=== PATIENT | female | born 1945 | race Caucasian/White ===

== ENCOUNTER 2019-04-01 02:05 | Outpatient (CLI) | payer MEDICARE, SELFPAY ==
[2019-04-01 13:21] LABS: ALT 37 U/L (12-78); AST 28 U/L (15-37); Albumin 4.3 g/dL (3.4-5.0); Alkaline Phosphatase 72 U/L (46-116); Anion Gap 9.9 mmol/L (3-11); BUN 17 mg/dL (7-18); Bilirubin, Total 0.7 mg/dL (0.2-1.0); CO2 30.1 mmol/L (21.0-32.0); Calcium 9.7 mg/dL (8.5-10.1); Calculated LDL 129; Chloride 99 mmol/L (98-107); Cholesterol 209 mg/dL (50-200); Glucose 88 mg/dL (70-100); HDL Cholesterol 57 mg/dL (40-60); Potassium 3.8 mmol/L (3.5-5.1); Sodium 139 mmol/L (136-145); TSH (W/Ref FT4) 2.08 uIU/mL (0.358-3.74); Total Protein 7.7 g/dL (6.4-8.2); Triglyceride 116 mg/dL (30-150)
== END 2019-04-01 02:25 ==
DX: E78.5 Hyperlipidemia, unspecified (principal); E03.9 Hypothyroidism, unspecified
CPT/HCPCS: 36415; 80053; 80061; 83721; 84443

== ENCOUNTER 2019-04-14 00:29 | Outpatient (CLI) | payer MEDICARE, SELFPAY ==
--- NOTE | 2019-04-14 08:30 | DI.MAMMO_ITS ---
SYMPTOMS/DIAGNOSIS: SCREENING, Z12.31 MAMMOGRAMS: Mammograms were interpreted according to the usual protocol including computer analysis with CAD system, tomosynthesis and C view imaging. The breasts are composed of fatty density tissue. There is no dominant mass. There are no suspicious calcifications and there has been no significant interval change when compared with prior images. SUMMARY: No evidence of malignancy, category 1. Yearly screening mammography is recommended. Breast density category A. MQSA ASSESSMENT OF FINDINGS: Negative. Category 1. Patient will receive a letter notifying them of these results. BI-RAD category A. The breasts are almost entirely fatty.
== END 2019-04-14 00:49 ==
DX: Z12.31 Encounter for screening mammogram for malignant neoplasm of breast (principal)
CPT/HCPCS: 77063; 77067

== ENCOUNTER 2019-05-05 15:52 | Outpatient (CLI) | payer MEDICARE, SELFPAY ==
--- NOTE | 2019-05-05 15:39 | DI.RAD_ITS ---
SYMPTOM/DIAGNOSIS: RT KNEE PAIN RIGHT KNEE: Multiple views. Comparison is made with 06/09/17. Moderately severe joint space narrowing is seen at the patellofemoral joint. There are osteophytes and subchondral cysts across the patellofemoral joint. The femoral tibial joint appears well maintained. The bones are intact and normally mineralized. Vascular calcifications are seen in the soft tissues. IMPRESSION: Moderately severe degenerative changes of the patellofemoral joint.
== END 2019-05-05 16:12 ==
PROVIDERS: Visit Provider Student in an Organized Health Care Education/Training Program
DX: M25.561 Pain in right knee (principal); M17.11 Unilateral primary osteoarthritis, right knee; M25.461 Effusion, right knee
CPT/HCPCS: 99213; 73564

== ENCOUNTER → 2019-05-24 13:49 | Outpatient (BNVA) | payer MEDICARE, SELFPAY | PROVIDERS: Visit Provider Physical Therapy Assistant | DX: Z12.11 Encounter for screening for malignant neoplasm of colon (principal); Z86.010 Personal history of colon polyps; I10 Essential (primary) hypertension ==

== ENCOUNTER 2019-05-28 10:10 | Outpatient (CLI) | payer MEDICARE, SELFPAY ==
--- NOTE | 2019-05-28 09:28 | W.PREOPHP ---
Assessment and Plan (1) Degenerative joint disease of right knee: Current visit: No Status: Chronic Plan: Educated patient on surgery covering surgical technique via models, recovery process, benefits and risks including but not limited to risk of infection, blood clot, numbness/tingling, damage to soft tissue/blood vessels/nerves in detail. After discussion patient gives verbal understanding of risks and elects to proceed with scheduling surgery. Patient had opportunity to have questions answered to their satisfaction. They will contact office if issues arise. Patient will continue to be scheduled for right total knee replacement with Dr. George. Qualifiers: Osteoarthritis type: primary Qualified Code(s): M17.11 - Unilateral primary osteoarthritis, right knee History of Present Illness For preoperative visit for right total knee Narrative: Ms. Barone is a 73-year-old female who presents to clinic for scheduled preoperative visit regarding right total knee replacement with Dr. George. Patient has been seen in orthopedic clinic numerous times regarding right knee pain. She identifies pain as being located on the anterior and lateral border of her patella with an occasional discomfort over her medial joint line as well as medial border of her patella. Describes pain as a constant ache that is severely aggravated with prolonged walking as well as stairs. Due to the recurrence of swelling patient significantly limits her activity and frequently elevates and ices that leg which provides some symptomatic improvement. She will also take rare doses of Aleve which provides significant pain relief. Patient reports she frequently has to brace herself with the use of the railing when descending stairs due to severe right knee discomfort as well as feelings of instability. States the knee frequently feels like it wants to lock up with prolonged walking. Patient denies any recent injuries or falls. Patient denies any symptoms of muscle weakness, numbness or tingling. Review of patient's history shows she had received a steroid injection in 06/09/2017 which provided some relief for approximately 3 months, unfortunately following the injection she reported aggravation of discomfort and swelling. Due to her continued symptoms patient had an MRI completed which as per Dr. George's read the MRI revealed signs of patellofemoral arthritis and recent x-rays revealed worsening arthritis especially the medial compartment and patellofemoral joint. Due to patient's continued symptoms causing restriction of activity and arthritis Dr. George offered surgical intervention and she was eager to proceed with total knee replacement. Pertinent Surgical Information Due to patient's complaints of chest pain and shortness of breath in 2013 she underwent a stress test. Review of Dr. Caldera' note from 08/12/2014 states conclusion of study was a negative treadmill study at very low functional capacity. Patient has had surgery since the stress test was completed and denies any issues. Patient denies any continued cardiac complaints. Review of systems today was negative for any concerning symptoms. Denies past medical history of: stroke, cardiac issues, angina, asthma, COPD, sleep apnea, renal issues, liver issues, hepatitis, gastrointestinal ulcers, bleeding disorders, seizures, migraines, diabetes, autoimmune disorders Denies prior complications from surgery or anesthesia. Review of Systems Constitutional Denies fever(s), Denies frequent falls and Denies headache(s) Eyes Denies change in vision ENT Denies dizziness, Denies ear discharge, Denies headache(s), Denies epistaxis, Denies nasal discharge and Denies sore throat Cardiovascular Denies chest pain, Denies rapid heart rate, Denies irregular heart rhythm, Denies dyspnea, Denies dyspnea on exertion, Denies orthopnea, Denies paroxysmal nocturnal dyspnea and Denies slow heart rate Respiratory Denies cough, Denies dyspnea, Denies dyspnea on exertion and Denies wheezing Gastrointestinal Denies abdominal pain, Denies melena, Denies hematochezia, Denies constipation, Denies diarrhea, Denies nausea and Denies vomiting Genitourinary Denies hematuria, Denies dysuria and Denies urinary urgency Musculoskeletal Reports as per HPI, Denies numbness and Denies tingling Neurologic Denies dizziness, Denies frequent falls, Denies headache(s), Denies numbness and Denies tingling Psychiatric Reports anxiety (moving apartments) and Reports depression Allergic/Immunologic Denies wheezing [facility] Social History Smoking/Tobacco Use Status: Former Tobacco Use Quit Date: 10/27/85 Alcohol Intake: current Alcohol Intake frequency: holidays/special occasions only Alcohol type: wine Drug use: Never Substance use type: does not use Caregiver/Support person: No Household members: none Housing: apartment Do you need help understanding health information?: Rarely Pets and animals: No Sexually active: No Do you think of yourself as: straight/heterosexual Current gender identity: decline to answer What is your relationship status?: How often do you talk on the phone with friends or family?: decline to answer How often do you get together with friends or relatives?: decline to answer How often do you attend yarsani or adventist services?: 4 or more times per year Do you belong to any clubs or organized social groups?: no Panel score (0-1 are the most socially isolated patients): 1 What type of physical activity do you participate in: walking Duration: 15-30 minutes/day Frequency: 3-4 times per week Tamara/Confucianism: Mandaeism Special tamara needs: No Seatbelt use: always Drive intox or ride w/intox services delivery driver: No Do you feel safe at home: Yes Do you feel safe in your relationship?: No Meds Home Medications Medication Instructions Recorded Confirmed Type naproxen sodium [Aleve] 220 mg PO Q12H PRN tab-cap 07/02/13 05/28/19 History fluoxetine 20 mg PO QAM #90 tab-cap 03/30/18 05/28/19 Rx clobetasol 0.05 % topical cream 1 applic TOPICAL BID #1 tube 10/29/18 05/28/19 Rx hydrochlorothiazide 25 mg tablet 25 mg PO QAM #90 tab-cap 10/29/18 05/28/19 Rx omeprazole 20 mg capsule,delayed 20 mg PO DAILY #90 cap 10/29/18 05/28/19 Rx release aspirin 81 mg tablet,delayed 81 mg PO HS 05/24/19 05/28/19 History release bisacodyl 5 mg tablet,delayed 5 mg PO ONCE #4 tab 05/24/19 05/28/19 Rx release polyethylene glycol 3350 17 238 g PO ONCE #238 gm 05/24/19 05/28/19 Rx gram/dose oral powder atenolol 50 mg tablet 75 mg PO HS #135 tab-cap 05/26/19 05/28/19 Rx levothyroxine 50 mcg tablet 50 mcg PO DAILY #90 tab-cap 05/26/19 05/28/19 Rx pravastatin 40 mg tablet 40 mg PO HS #90 tab-cap 05/26/19 05/28/19 Rx Allergies Allergy/AdvReac Type Severity Reaction Status Date / Time No Known Allergies Allergy Verified 05/28/19 13:29 Exam Const General: cooperative and no acute distress HENMT Head: normal to inspection, normocephalic and atraumatic Ears: external ears normal General nose exam: external nose normal and no nasal discharge Face and sinus: face symmetric Mouth: oral mucosae normal, lip normal, tongue normal and moist mucous membranes Throat: posterior oropharynx normal Eyes General: appearance normal, both eyes and all related structures Pupils: PERRL EOM: EOM intact bilaterally Neck Neck: trachea midline Carotids: normal carotid upstroke Lymphatic: no lymphadenopathy noted Resp Effort & Inspection: normal respiratory effort and able to speak in complete sentences Auscultation: clear to auscultation bilaterally, no rales, no rhonchi and no wheezes Cardio Heart Sounds: S1 normal, S2 normal and no murmurs Pulses: radial pulses present bilaterally GI Palpation: soft, no hepatosplenomegaly and nontender Auscultation: normal bowel sounds Skin General skin exam: no rashes or lesions noted Results Labs : 05/28/19 10:50 05/28/19 10:50
[2019-05-28 11:06] LABS: HCT 40.8 % (36.0-46.0); HGB 13.7 g/dL (12.0-15.5); Mean Corp. HGB Concentration 33.6 g/dL (32.0-36.0); Mean Corpuscular Hemoglobin 30.8 pg (27.0-33.0); Mean Corpuscular Volume 91.7 fL (80-95); Mean Platelet Volume 10.1 fL (8.0-11.0); Platelet Count 244 x1000/uL (130-400); RBC 4.45 m/cumm (4.00-5.20); RBC Distribution Width 12.6 % (11.7-14.6); White Blood Cell Count 7.07 k/cumm (4.4-10.8)
[2019-05-28 11:41] LABS: Anion Gap 8.5 mmol/L (3-11); BUN 18 mg/dL (7-18); CO2 30.5 mmol/L (21.0-32.0); Calcium 9.4 mg/dL (8.5-10.1); Chloride 99 mmol/L (98-107); Glucose 93 mg/dL (70-100); Potassium 3.6 mmol/L (3.5-5.1); Sodium 138 mmol/L (136-145)
== END 2019-05-28 10:30 ==
PROVIDERS: Visit Provider Student in an Organized Health Care Education/Training Program
DX: M17.11 Unilateral primary osteoarthritis, right knee (principal); M25.561 Pain in right knee; I10 Essential (primary) hypertension; K21.9 Gastro-esophageal reflux disease without esophagitis; Z01.818 Encounter for other preprocedural examination
CPT/HCPCS: 36415; 80048; 85027

== ENCOUNTER 2019-05-28 10:26 | Outpatient (CLI) | payer MEDICARE, SELFPAY ==
--- NOTE | 2019-05-28 09:58 | DI.RAD_ITS ---
SYMPTOM/DIAGNOSIS: PRE-OPERATIVE PLANNING FOR RIGHT TKA LEG LENGTH EXAMINATION: Routine examination was performed. In the right knee there is mild periarticular spurring in the lateral femoral tibial joint space. The left knee appears well maintained. The right lower extremity measures 89.2 cm The left lower extremity measures 90.3 cm.
== END 2019-05-28 10:46 ==
PROVIDERS: Visit Provider Physician Assistant
DX: M17.11 Unilateral primary osteoarthritis, right knee (principal); M21.70 Unequal limb length (acquired), unspecified site
CPT/HCPCS: 36415; 80048; 85027; 77073

== ENCOUNTER 2019-05-31 07:09 | Day surgery (SDC) | payer MEDICARE, SELFPAY ==
--- NOTE | 2019-05-31 06:56 | W.COLOREPORT ---
Date of service: 05/31/19 Time of Service: 08: Colonoscopy Report Date of procedure: 05/31/19 Pre-op diagnosis general: Colon Cancer screening, Hx of polyps Post-op diagnosis procedure note: other (Transverse colon polyp, mild diverticulosis) Procedure: Colonoscopy with polypectomy by snare and forceps Surgeon: Jaz Weiss Anesthesia proc note operative: other (General/ ASA 2/Neal Carlos, MOISÉS ) Estimated blood loss (mL): 3 Pathology: other (transverse colon polyp) Complications: None Disposition: same day Indications: Mrs. Barone is apleasant 73 year old female with a history of polyps in 2013 who is here for a follow up colonoscopy. Risks, benefits and complications have been reviewed. Complications include but are not limited to bleeding, pain, perforation, missed small lesion/polyp, sore throat, aspiration and adverse reaction to the medications. Questions were entertained and answered to their satisfaction and they wished to proceed. No guarantees were given or implied. Prep: Miralax/Dulcolax Procedure Start Time: : Procedure End Time: :46 Retraction Time: 16 minutes Findings: Mild sigmoid diverticulosis and one small transverse colon polyp Tortuous descending colon Procedure Description: After informed consent was obtained the patient was taken to the procedure room and placed in a left decubitous position. Monitors were applied and a time out was done. The patients name, date of , procedure, allergies to medications and metal in their body was reviewed. The patient was then sedated. Once sedated and comfortable a rectal exam was done. External exam was normal. Internal exam revealed a normal sphincter tone and no palpable masses. The scope was then introduced and retro-flexed. No internal hemorrhoids, no polyps or massess were identified. The scope was then advanced to the cecum with some difficulty due to a tortuous descending colon. The TI and appendiceal orifice were identified. The prep was adequate. The scope was then slowly retracted over 16 minutes back into the rectum. Polyps were removed with a snare and cold forceps in the transverse colon. The scope was removed and the patient was woken up and taken back to Same day surgery in stable condition. The patient tolerated the procedure well and there were no immediate complications. Follow up: The patient should follow up in 5 years as long as her health allows or unless they develop changes in bowel habits or other new gastrointestinal complaints.
--- NOTE | 2019-05-31 07:02 | W.PM.DSUDISC ---
Discharge Plan Disposition Patient Disposition: HOME Condition: Good Discharge Details Reason For Visit: Hx of polyps, Colonoscopy Attending Provider: Jaz Weiss Primary Care Provider: Lashanda Farmer Home Meds and New Rx's Prescriptions: Continued aspirin [Adult Aspirin Regimen] 81 mg tablet,delayed release (DR/EC) 81 mg PO HS RF: 0 naproxen sodium [Aleve] 220 MG tablet 220 mg PO Q12H PRN RF: 0 fluoxetine 20 MG capsule 20 mg PO QAM Qty: 90 RF: 4 clobetasol 0.05 % cream 1 applic Topical BID Qty: 1 RF: 2 hydrochlorothiazide 25 mg tablet 25 mg PO QAM Qty: 90 RF: 4 omeprazole 20 mg capsule,delayed release(DR/EC) 20 mg PO DAILY Qty: 90 RF: 4 atenolol 50 mg tablet 75 mg PO HS Qty: 135 RF: 4 levothyroxine 50 mcg tablet 50 mcg PO DAILY Qty: 90 RF: 3 pravastatin 40 mg tablet 40 mg PO HS Qty: 90 RF: 4 Discontinued polyethylene glycol 3350 17 gram/dose powder 238 g PO ONCE Qty: 238 RF: 0 bisacodyl [Dulcolax (bisacodyl)] 5 mg tablet,delayed release (DR/EC) 5 mg PO ONCE Qty: 4 RF: 0 Discharge Instructions Instructions: Colonoscopy (GEN), Colorectal Polyps (GEN), Diverticulosis (ED) Additional Instructions: Findings: one small polyp mild diverticulosis Follow up: 5 years Please call if you develop: fevers >101.5 Nausea or Vomiting Abdominal pain that is not transient DAY SURGERY UNIT POST COLONOSCOPY INSTRUCTIONS 1. Because there will be medication in your system for the next 24 hours, you may feel a little sleepy. Your coordination will be affected. Therefore: a. Do not drive or operate dangerous equipment for 24 hours. b. Do not drink alcohol beverages for 24 hours (not even beer). c. Plan to go home and rest for the day. 2. Generally there are no restrictions on your activity after a day or so has gone by, but you may feel a bit fatigued for a few days. 3 After you arrive home you may have a light meal and return to a normal diet as you can tolerate it without feeling sick to your stomach. 4. After surgery, you may feel pain or discomfort. This should be only transient, but if it persists please contact your doctor. 5. If there are any questions regarding the findings of your procedure, please feel free to contact your doctor. 6. If you are unable to contact your doctor with a problem, contact the hospital at [phone]. 7. Continue all your regular medications unless directed otherwise. I understand the above instructions and have no questions. Signature of Patient or Responsible Adult Escort Date/Time Name of Responsible Adult Escort Signature of Nurse Date/Time Activity:: Activity as Tolerated Diet:: As Tolerated Discharge Orders Discharge Orders: Discharge Order (Routine); Ordered 05/31/19 Ordered By: Jaz Weiss DS: Diagnosis Discharge Diagnosis (1) Colonoscopy - MAC: Status: Resolved (2) Colon polyp: Status: Acute
[2019-05-31 07:42] VITALS: BP 126/79; PULSE 80; RESP 16; TEMP 36.5; O2SAT 97
[2019-05-31] MEDS: Lactated Ringers 1,000 ML 80 ML IV (07:47)
--- NOTE | 2019-05-31 08:38 | BOWEL_PTH ---
PATIENT: Abena Barone LOC: [facility] U#:[id number] AGE/SX: 73/F ROOM: RE05/31/[address]: Jaz Weiss MD : [id number] BED: DIS: 05/31/2019 SPEC #: [id number] RECD: 05/31/19 12:53 STATUS: VICKEY REQ #: [id number] MARIE: 05/31/19 08:[address]: Jaz Weiss DEPT: Surgical Specimen RECD BY: China Clark ENTERED: 05/31/19 12:53 SP TYPE: Bowel OTHR DR: Lashanda Farmer APRN Tissues: 1 - BIOPSY BOWEL Procedures: GROSS AND MICRO LEVEL 4 Comments: [id number]
[2019-05-31 09:16] VITALS: BP 169/68; PULSE 62; RESP 18; TEMP 36.1; O2SAT 95
[2019-05-31 09:47] VITALS: BP 160/70
== END 2019-05-31 10:02 | disposition home or self-care (01) ==
LOC: SUR 07:10
PROVIDERS: Visit Provider Surgery
PROC: 0DJD8ZZ Inspection of Lower Intestinal Tract, Via Natural or Artificial Opening Endoscopic (ICD-10-PCS; CPT 45378; principal; 2019-05-31 08:15)
DX: Z12.11 Encounter for screening for malignant neoplasm of colon (principal); Z86.010 Personal history of colon polyps; D12.3 Benign neoplasm of transverse colon; K57.30 Diverticulosis of large intestine without perforation or abscess without bleeding; I10 Essential (primary) hypertension; K21.9 Gastro-esophageal reflux disease without esophagitis
CPT/HCPCS: 45385; 45380; 88305

== ENCOUNTER 2019-06-10 09:19 | Inpatient (IN) | payer MEDICARE, SELFPAY ==
[2019-05-28 10:26] VITALS: BP 138/77; PULSE 60; RESP 17; TEMP 36.7; O2SAT 97
[2019-05-28 10:29] VITALS: BP 138/77; PULSE 60; RESP 17; TEMP 36.7; O2SAT 97
[2019-06-10] VITALS (16 sets, daily range): BP systolic 122–162; BP diastolic 49–107; PULSE 46–60; RESP 11–18; TEMP 35.6–37; O2SAT 94–100
[2019-06-10] MEDS: Lactated Ringers 1,000 ML 80 ML IV ×2 (10:05→13:23)
[2019-06-10] MEDS: Celecoxib 200 MG CAP 400 MG PO (10:05)
[2019-06-10] MEDS: Gabapentin 300 MG CAP PO ×2 (10:06→21:24)
[2019-06-10] MEDS: Acetaminophen 500 MG TAB 1000 MG PO ×3 (10:06→20:23)
[2019-06-10] MEDS: oxyCODONE-CR 10 MG TABCR PO (10:07)
[2019-06-10] MEDS: Bupivacaine 0.5% Pres-Free 30 ML VIAL (10:40)
[2019-06-10] MEDS: Bupivacaine LIPOSOME/PF 133 MG/10 ML VIAL IJ ×2 (10:40→12:00)
[2019-06-10] MEDS: ceFAZolin 2 GM/50 ML BAG IVPB (11:04)
[2019-06-10] MEDS: Normal Saline 20 ML VIAL (12:00)
[2019-06-10] MEDS: Ketorolac 30 MG/ML VIAL (12:00)
[2019-06-10] MEDS: Bupivacaine 0.25% Pres-Free 30 ML VIAL (12:00)
--- NOTE | 2019-06-10 14:20 | W.PM.OP ---
Date of service: 06/10/19 Time of Service: 14:20 Operative Note DATE OF PROCEDURE: 06/10/19 PRE-OP DIAGNOSIS: Right knee osteoarthritis POST-OP DIAGNOSIS: same PROCEDURE: Right Total Knee Replacement SURGEON: Denilson George BURRING WHEEL OPERATOR: Ameya Brunner ANESTHESIA: regional and spinal ESTIMATED BLOOD LOSS: 150 PATHOLOGY: none sent TOURNIQUET TIME: 32 COMPLICATIONS: None Patient was transported to: PACU Patient's condition: stable Implants: 1. Depuy Attune Posterior Stabilized Femoral Component, Size 4 narrow 2. Depuy Attune Fixed Platform Tibial Component, Size 2 3. Depuy Attune 4 x 6 mm fixed, Stabilized Poly 4. Depuy Attune Patellar Component, Size 32 mm Indications: I have seen Abena in clinic for symptoms of RIGHT knee arthritis, confirmed with radiographic findings. She has exhausted nonoperative methods and was having significant limitations in daily function and desired better function and less pain. I discussed the technical details of a knee replacement. I explained the risks of the procedure to include, but not limited to, bleeding, infection, pain, stiffness, fracture, damage to nerves and vessels, damage to muscles and tendons, loosening, need for repeat procedure, blood clot and cardiopulmonary demise. Despite these risks, she elected to proceed. Findings: There was significant signs of arthritis throughout the knee. Procedure Description: Abena was greeted in the preoperative holding area where the correct side was identified and marked. The consent was reviewed with the patient and signed. The history and physical was updated. All questions were answered. Preoperative mediacations were administered: Acetaminophen 1000mg, Celebrex 400mg, Gabapentin 300mg, and Oxycontin 10mg. An adductor canal block was then administered by the anesthesia team in the PACU. She was taken back to the operating room. A spinal anesthestic was then administered. The patient was placed into the supine position on the operating room table. A nonsterile tourniquet was placed high onto the leg but only used for cementing. Posts were placed for positioning during the procedure. All bony prominences were well padded. Prophylactic antibiotics in the form of cefazolin were administered. 1g of Tranxemic Acid was given intravenously within 30 minutes of incision. The right leg was then prepped with Chloraprep and draped in a standard fashion with impervious stockinette and extremity drape with Iodine impregnated skin protection. A timeout to confirm correct identity, side and site, procedure, allergies, anesthesia, and medical concerns was performed. With the knee in some flexion, a midline incision was made overlying the knee. Full thickness skin flaps were raised once the extensor mechanism was encountered. These were raised medially and laterally. Any bleeding was controlled with electrocautery. Once the extensor mechanism was fully exposed, a medial parapatellar arthrotomy was performed in a flexed position. All bleeding from the arthrotomy and the geniculate arteries was coagulated. A medial subperiosteal peel was performed with electrocautery to the midcoronal plane. The fat pad was removed while keeping the patellar tendon protected. The anterior distal femur synovium was removed for later visualization. The ACL and PCL were resected and the anterior horn of the lateral meniscus was transected. The knee was then flexed with the patella everted. Large osteophytes from the tibia were removed. Large osteophytes from the femur were removed. Using a step drill, and based on preoperative templating, the femoral canal was entered. This was done with a step drill without any difficulty. The intramedullary distal femoral cut guide was inserted, set to a 5 degree valgus cut and 9mm cut thickness. There was some hypoplasia of the lateral femoral condyle and any remnant cartilage of the medial femoral condyle was removed for appropriate thickness. The distal femoral cut guide was then held in position and pinned. With the soft tissues protected, the distal cut was performed. This was passed over a few times to ensure a planar cut. I then turned attention to the tibia. The extramedullary guide was placed onto the leg. The distal aspect was slid medial to adjust for position of center of ankle and stay in line with shaft of the tibia. Approximately 3-5 degrees of posterior slope was kept in the proximal cutting guide. The center of the guide was aligned with the PCL. The stylus was used to assess cut thickness. The medial side, most involved side, was set for a 6mm cut. This was then held in position and pinned into place with 2 additional pins and a cross pin for stability. The medial and lateral collateral ligaments were protected and the cut was performed. With this completed, it was assessed and noted to be of appropriate dimensions. The guide was removed. A spacer block was inserted and the knee was brought into extension. The 6mm spacer block provided full extension, without hyperextension and with stability of both the medial and lateral collateral ligaments was assessed. The pins from the femur and the tibia were then removed. The distal femur was then sized. The anterior stylus was placed onto the lateral ridge of the anterior femur. This indicated a size 4 narrow femur. The external rotation of the guide was adjusted to 5 degrees to match the epicondylar axis, perpendicular to [place]?s line. The 4-in-1 cutting guide was the placed. The posterior medial femur cut was evaluated and appeared of good thickness. The spacer block was inserted underneath the cutting guide and stability was confirmed in 90 degrees of flexion. An emma wing was used to confirm appropriate position of the anterior cut to avoid notching. This cutting guide was ensured to be flush on the cut surface and then pinned into place with headed pins. While protecting the soft tissues, quad tendon, and collateral ligaments, the anterior and posterior cuts were performed with a saw. The central two pins were removed and the posterior and anterior chamfers were cut next. The notch-cutting guide was placed. This was pinned to lateralize the femoral component as much as possible while keeping it flush on the cut surface. This was then pinned into position. A reciprocating saw was used to make the notch cut. A rasp smoothed the cut surfaces. A trial posterior stabilized femoral component was then inserted, impacted down to the cut surfaces, and the lug holes were drilled. A provisional trial tibial component was placed and the knee was brought through range of motion. There was noted to be excellent extension and flexion. There was no significant instability. The patella was tracking without thumbs. The tibial cut surface was fully exposed. The medial and lateral menisci were removed. The tibia was then sized as a 2. The tibia had been previously marked during trialing to correspond to the center of the tibial component to help with rotation. The trial was aligned to this ameya, approximately rotated to the medial 1/3rd of the tibial tubercle. The trial was pinned into place. The tibia was prepared with a reamer and a keel punch. The knee was then brought into extension and the patella was measured as 22 mm. Using the patellar clamp and cut guide, this was resected to a flat surface with at least 13mm of thickness remaining. The size 32 patella fit the best. This was oriented and then clamped into position. The lugs were drilled. The trial components were removed. The final components, except for the polyethylene were opened on the back table. The periosteal and capsular tissues, especially posteriorly, around the knee were then systematically injected with a periarticular cocktail consisting of 50cc 0.25% Marcaine, 30mg Ketorolac, 20cc of Exparal and 50cc of injectable saline. The tourniquet was then inflated to 275mmHg. The knee was thoroughly irrigated with a pulse lavage and dried. On the back table, with the implants opened, the cement was mixed. 2 batches of antibiotic laden cement were prepared with vacuum assistance. After the cement was ready a small amount was placed on to the back side of the tibial component at the keel. A small amount was placed onto the posterior flange of the femur. Cement was manual pressurized and impregnated into the cut surface of the tibia. The tibial component was then inserted into the cut surface and impacted into position. Excess cement was removed and the component was reimpacted. Again, excess cement was removed and our attention was then turned to the femur. The femoral cut surface was once again dried and cement was manually impacted into the cut surface. The femoral component was lined with the lug holes and impacted. Excess cement was removed. It was ensured to be down against the cut surface. The trial polyethylene was then inserted and the leg was brought out into full extension for the duration of the cement curing process, approximately 15min. Cement was lastly manually impacted into the cut surface of the patella and the patellar button was clamped into position and held. During this process attention was turned to the gutters of the knee and for all interfaces for any excess cement. After the cement had finally cured, approximately 15min, the clamp was removed from the patella and the knee was taken through range of motion. A size 6mm polyethylene component provided the best range of motion and stability with less than 2mm gapping with medial and lateral stress and full extension without significant hyperextension. The patella was tracking with a no-thumbs technique. The trial poly was removed and once again the knee was checked for any loose, excess, or errant cement. The poly component was then inserted and impacted into position after cleaning and drying the tibial tray. The capsule was then reapproximated with a No. 1 Vicryl at multiple locations. The capsule was finally closed with a No. 2 Stratafix, barbed suture. The tourniquet was then released and the arthrotomy appeared watertight without significant bleeding. The second dosing of 1g TXA was started. Deep tissues were then reapproximated with 0 Vicryl and 2-0 Vicryl. The skin was closed with a running 3-0 Monocryl in a subcuticular fashion. This was reinforced with skin glue. A Mepilex silver dressing was applied along with a [id number] LUBNA wrap. A CryoCuff was applied. Barb was transferred to the hospital bed without difficulty an suffering no apparent complication. She has a good prognosis. Physical therapy will start today and without restrictions, weight-bearing as tolerated. Aspirin 81mg BID will be used for DVT prophylaxis.
[2019-06-10] MEDS: Normal Saline Flush 10 ML SYR IV (14:28)
--- NOTE | 2019-06-10 14:41 | NUR.NOTE ---
Nursing Note: Received report from director asset. BRADEN Pretty and I brought the patient up. Vitals stable prior to transfer - was bradycardic (has been this way since coming to the hospital). Pt A&Ox3. Laying comfortably in bed. Denies pain. Clear lung sounds, stable O2 sats >92% on RA. Denies SOB. HR bradycardic, asymptomatic. Denies chest pain/discomfort. Active BS. No N/V. Rivera in place patent and draining. Radial and pedal pulses palpable. Full sensation in L leg. R leg has numbness still, but palpable pulses. Dressing (clean/dry/intact) and cryocuff in place. PIV L FA has LR running @ 80 cc/hr. Tolerating PO fluids well.
--- NOTE | 2019-06-10 17:00 | PT.INIE ---
Date of service: 06/10/19 Time of Service: 14:43 PT Notes Inpatient Physical Therapy Evaluation Date: 06/10/2019 Referring Doctor: francisco George MD PT Orders: PT CONSULT: S/P R TKA Precautions: Fall. Standard. WBAT on R Patient Profile/Admitting Diagnosis: Patient is a 73-year-old female with degenerative joint disease of her right knee and is S/P R total knee arthroplasty on postoperative day 0. PMHX: Depression HTN GERD Hyperlipidemia Hypothyroidism LBP Peripheral Neuralgia R wrist pain Social History/Home Situation: Patient lives alone in a 1-floor house with 2 steps to enter and a rail on the right going up. She is independent with all aspects of ADLs without the need for an assistive ambulatory device nor adaptive equipment. The house has been handicap accessible as patient used to take care of her ailing parents in the same house. Patient will have daughter Candy who will be with her for the next three weeks to assist with her recovery. Current Functional Limitations: Need for an assistive device and physical assistance for all transfer and ambulation task performance; decline in mobility level Equipment Owned/DME: [employer], [employer], [place], high-rise toilete seat, shower chair, bedside commode Subjective: Patient agreeable to a PT consult today. She complains about her whole right leg being heavy and being difficult to move. She reports being fatigued as she did not have a good night's rest prior to the surgery today. She reported being nauseous and dizzy upon sitting up at edge of bed, vomited x3 and felt a little better after that. Nurse was called to assist. In standing, she could not lift her right extremity to advance it, walking was therefore deferred at time of evaluation. Objective: General Observation: Patient seen resting in bed. Appears to tired and sleepy. LUBNA wraps on right lower extremity. Cryo/Cuff on right knee. Knee-high TEDS on left. IV in right UE. Rivera catheter in place. Mental Status: Alert and oriented x4 Pain: 0/10 on the right knee Vital Signs: BP at rest was 142/63 mmHg which increased to 162/83 mmHg upon sitting up. A second blood pressure taken in the seated position yielded 159/64 mmHg. Pulse ranged from 48 through 59 bpm throughout session. ROM: Right Upper Extremity: Shoulder Flexion WFL. Shoulder abduction WFL. Elbow flexion WFL. Wrist flexion WFL. Functional opening and closing of hand WFL. Left Upper Extremity: Shoulder Flexion WFL. Shoulder abduction WFL. Elbow flexion WFL. Wrist flexion WFL. Functional opening and closing of hand WFL. Right Lower Extremity: Hip flexion 0-30 in supine limited by nerve block aftereffect. Hip abduction 0-20 in supine limited by nerve block aftereffect . Knee flexion 0-40 in supine limited by nerve block aftereffect, patient was able to assume up to 90 degrees of knee flexion while seated at edge of blood bed. Active knee extension unable to perform. Ankle dorsiflexion WFL. Ankle plantarflexion WFL. Left Lower Extremity: Hip flexion WFL. Hip abduction WFL. Knee flexion WFL. Ankle dorsiflexion WFL. Ankle plantarflexion WFL. Strength: Right Upper Extremity: Shoulder flexors 5/5. Shoulder abductors 5/5. Elbow flexors 5/5. Elbow extensors 5/5. Email Marketing Specialist strong. Left Upper Extremity: Shoulder flexors 5/5. Shoulder abductors 5/5. Elbow flexors 5/5. Elbow extensors 5/5. Email Marketing Specialist strong. Right Lower Extremity: Hip flexors 3-/5. Hip abductors 3-/5. Knee flexors 3-/5. Knee extensors 3/5. Ankle dorsiflexors 4-/5. Ankle plantarflexors 4-/5. Left Lower Extremity:Hip flexors 5/5. Hip abductors 5/5. Knee flexors 5/5. Knee extensors 5/5. Ankle dorsiflexors 5/5. Ankle plantarflexors 5/5. Sensation: Diminished on the right lower extremity as to pain and pressure. Bed Mobility/Transfers: Rolling CGA Supine to sit CGA Sit to supine CGA Sit to stand minimal assist Stand to sit minimal assist Bed to chair Deferred transfers and ambulation activity today due to lack of motor control on R LE due to nerve block aftereffect. Chair to bed Deferred transfers and ambulation activity today due to lack of motor control on R LE due to nerve block aftereffect. Gait: Deferred transfers and ambulation activity today due to lack of motor control on R LE due to nerve block aftereffect. Balance: Static Sitting: Good Dynamic Sitting: Good Static Standing: Fair Dynamic Standing: Poor Special Tests: Mobility Limitations Standardized Measure [facility] AM-PAC 6 clicks Basic Mobility Inpatient Short Form: Raw Score: 11 CMS Score: 73% deficit Informed Consent/Education: Patient instructed in purpose of PT consult and plan of care. Patient was advised that due to aftereffect of the nerve block she had at surgery, it is typical to have this feeling of inadequate control of her movement. She was assured that as the effect of the block wears off, she would feel more able to move her limb. Assessment: Patient presents with clinical signs and symptoms consistent with current/admitting diagnoses that have resulted to mobility limitations, gait instability, generalized weakness, and impairment of motor control as demonstrated by the following impairment level findings: 1. Decreased strength to R LE major muscle groups leading to R knee buckling 2. Impaired sitting/standing balance 3. Impaired activity tolerance 4. Limitation of joint range of motion in R hip and knee joints Impairments are contributing to the following functional limitations: 1. Dependent bed mobility skills 2. Increased dependence with transfers 3. Inability to safely ambulate without assistive device and physical assistance 4. Increase completion time for mobility ADL performance 5. Increased fall risk 6. Inability to negotiate steps alone safely Patient is assessed as a 53837 moderate complexity based on the following: History: 73-year-old cognitively intact female with independent premorbid level with R knee DJD S/P L knee arthroplasty Examination: Demonstrable impairment in strength, balance, and range of motion with underlying impairments and functional limitations as documented above Presentation:Evolving Decision Makin moderate complexity Goals: Goals X1 week 1. Supine-Sit independent 2. Sit-Supine independent 3. Sit-Stand independent 4. Stand-Sit independent 5. Bed-Chair independent 6. Chair-Bed independent 7. Independent gait on level surface with use of least restrictive device for at least 300 feet without report of pain nor dyspnea 8. Independent stair negotiation while holding onto bilateral rails for at least 5 steps without report of pain nor dyspnea 9. Independent with home exercise program 10. Good static and dynamic standing balance/tolerance Plan of Care/Treatment Plan: 1-2x/day, 7 days/week x 1 week. Plan of care has been reviewed with the CEMENT RAILROAD CAR LOADER providing the service under Physical Therapy direction. Initiate Physical Therapy intervention for strengthening, bed mobility, transfers, gait, stairs, balance training, use of assistive device. DISCHARGE RECOMMENDATIONS: May benefit from skilled physical therapy services according to orthopedic surgeon's timeline recommendations. Patient will be educated and trained on home exercise program per TKA exercise protocol in preparation for outpatient physical therapy services. TREATMENT CODE/TIME: 31415 x 36 minutes beginning 14:43 PM. Thank you very much for this referral. Betsy Multani PT, DPT, CLT [facility]
[2019-06-10] MEDS: Celecoxib 100 MG CAP 200 MG PO (20:21)
[2019-06-10] MEDS: Aspirin E.C. 81 MG TABEC PO (20:23)
[2019-06-10] MEDS: Pravastatin 40 MG TAB PO (21:24)
[2019-06-10] MEDS: Atenolol 50 MG TAB 75 MG PO (21:24)
[2019-06-11] MEDS: Lactated Ringers 1,000 ML 80 ML IV (02:50)
[2019-06-11 04:25] VITALS: BP 124/70; PULSE 95; RESP 16; TEMP 36.2; O2SAT 96
[2019-06-11] MEDS: Levothyroxine 50 MCG TAB PO (06:25)
[2019-06-11] MEDS: FLUoxetine 20 MG CAP PO (08:00)
[2019-06-11] MEDS: Aspirin E.C. 81 MG TABEC PO (08:00)
[2019-06-11] MEDS: Acetaminophen 500 MG TAB 1000 MG PO ×2 (08:00→13:33)
[2019-06-11] MEDS: Omeprazole 20 MG CAPCR PO (08:00)
[2019-06-11] MEDS: hydroCHLOROthiazide 25 MG TAB PO (08:00)
[2019-06-11] MEDS: Celecoxib 100 MG CAP 200 MG PO (08:00)
--- NOTE | 2019-06-11 08:04 | PDOC.CMIN ---
- If Service Date Differs Date of service: 06/11/19 Time of Service: 08:04 Care Management Initial Assess REASON FOR HOSPITALIZATION:: right TKR PAST MEDICAL HISTORY/PAST SURGICAL HISTORY:: Past Medical History. Actinin keratosis, arthritis of right thumb, colon polyp, depressive disorder, essential hypertension, gastroesophageal reflux, hyperlipidemia, hypothyroidism, bilateral knee pain, midline low back pain, peripheral neuralgia, right carpel tunnel syndrome,. Surgical history: breast biopsy,colonoscopy, post tubal ligation, carpel tunnel surgery PREVIOUS FUNCTIONAL STATUS/SOCIAL/FAMILY SUPPORTS:: Abena lives alone in a one level,single family home in [place], [place] She is independent with all ADLs and driving. Abena has 2 daughters. One lives in [place] but is here visiting and will stay with Abena until the end of May. The other daughter lives in [place]. CURRENT FUNCTIONAL STATUS:: Abena was sitting up in a chair chatting with her daughter Candy when CM came to see her. She was pleasant and friendly and engaged readily in conversation. Abena stated she feels good and expects to be discharged later today.She does not anticipate needing any additional services. She has all of the DME she will need at home she stated. ADVANCE DIRECTIVES:: NAHUN Cifuentes. Gaston Tovar - chanda Has patient been provided with information about the portal?: No Did the patient sign up for the portal?: No CODE STATUS:: Full Code INSURANCE COVERAGE / FINANCIAL ISSUES:: Medicare. AARP CURRENT HOME/COMMUNITY SERVICES/EQUIPMENT:: has walker and cane if needed at home PRIMARY CARE PHYSICIAN:: aLshanda Farmer POTENTIAL DISCHARGE NEEDS:: follow up with surgeon and PCP and discharge plan of care. PATIENT/FAMILY EDUCATION NEEDS:: Discharge plan, limitations, follow up plan, Ask Me Three. ANTICIPATED BARRIERS TO DISCHARGE:: none TRANSPORTATION:: via private vehicle with daughter PLAN:: Abena will be discharged home with no additional services and begin OP PT in 2 weeks. She will be transported by her daughter via private vehicle' Abena will follow up with Dr. George and her discharge plan of care.
[2019-06-11 09:30] VITALS: BP 173/74; PULSE 63; RESP 16; TEMP 36.1; O2SAT 97
[2019-06-11 11:35] VITALS: BP 148/74; PULSE 60; RESP 16; TEMP 36.4; O2SAT 98
--- NOTE | 2019-06-11 13:24 | W.PM.DS.N ---
Date of service: 06/11/19 Time of Service: 13:24 DS: Diagnosis Discharge Diagnosis (1) Degenerative joint disease of right knee: Status: Chronic Discharge Plan Disposition Patient Disposition: HOME Condition: Good Discharge Details Reason For Visit: RIGHT KNEE DJD Admit Date/Time: 06/10/19 09:19 Admit Provider: Denilson George Attending Provider: Denilson George Primary Care Provider: Lashanda Farmer Hospital Course Hospital Course: Patient was admitted to the medical/surgical floor following the procedure. It was tolerated well without any notable medical, surgical, or anesthetic complications. Mobilization began postoperatively. The carias catheter was removed and voiding spontaneously. Vitals were stable. Physical therapy worked with the patient and was cleared for discharge home. No acute medical issues. Home Meds and New Rx's Prescriptions: New celecoxib 200 mg capsule 200 mg PO BID PRN (Reason: pain) Qty: 60 RF: 1 acetaminophen 500 mg tablet 1,000 mg PO Q8H PRN (Reason: pain) Qty: 90 RF: 3 gabapentin 300 mg capsule 300 mg PO QHS Qty: 7 RF: 0 oxycodone 5 mg tablet 5 mg PO Q6H PRN MDD 20mg PRN (Reason: severe pain) Qty: 12 RF: 0 Continued fluoxetine 20 MG capsule 20 mg PO QAM Qty: 90 RF: 4 clobetasol 0.05 % cream 1 applic Topical BID Qty: 1 RF: 2 hydrochlorothiazide 25 mg tablet 25 mg PO QAM Qty: 90 RF: 4 omeprazole 20 mg capsule,delayed release(DR/EC) 20 mg PO DAILY Qty: 90 RF: 4 atenolol 50 mg tablet 75 mg PO HS Qty: 135 RF: 4 levothyroxine 50 mcg tablet 50 mcg PO DAILY Qty: 90 RF: 3 pravastatin 40 mg tablet 40 mg PO HS Qty: 90 RF: 4 aspirin [Adult Aspirin Regimen] 81 mg tablet,delayed release (DR/EC) 81 mg PO BID Qty: 60 RF: 0 Discontinued aspirin [Adult Aspirin Regimen] 81 mg tablet,delayed release (DR/EC) 81 mg PO HS RF: 0 naproxen sodium [Aleve] 220 MG tablet 220 mg PO Q12H PRN RF: 0 Discharge Instructions Additional Instructions: Dr. George?s Total Knee Discharge Instructions Activity: The most important activity is to walk. You should try to take short walks a few times a day. It is important that when resting you work on keeping the knee straight. Avoid putting a pillow behind the knee as this will encourage flexion. Work on range of motion exercises as provided by Physical Therapy. - Start outpatient physical therapy within 2 weeks. - You should wear the SHELLY hose on both legs for 2 weeks. Dressing: The LUBNA wrap may be removed on post-operative day #1 or #2. Keep the surgical dressing in place for at least one week. After the first week it may be removed and replace with light gauze and tape or nothing. It may get wet after 3 days but avoid soaking the dressing. If it gets wet, just lightly pat dry. Medications: - You should take Tylenol and anti-inflammatory Celebrex as your primary pain control medications - You have been prescribed a stronger pain medication Oxycodone for breakthrough pain, take as needed as prescribed. - You will be taking Aspirin 81mg twice a day for DVT prevention unless instructed otherwise. - If you have constipation you should take Colace or Miralax (both [id number]). It takes most people 3-4 days to have a bowel movement. Follow-up: 2 weeks Referrals: Denilson George MD [ [facility] STAFF PHYSICIAN] - Activity:: Activity as Tolerated Equipment/Supplies:: Walker Diet:: As Tolerated Discharge Orders Discharge Orders: Discharge Order (Routine); Ordered 06/11/19 Ordered By: Denilson George DS: Data Vitals/I&O Vitals and I&O: Vital Signs Temperature 36.4 C L 06/11/19 11:35 Temperature Source Tympanic 06/11/19 11:35 Pulse 60 06/11/19 11:35 Pulse Rhythm Regular 06/11/19 08:15 Respiratory Rate 16 06/11/19 11:35 Respiratory Effort Non-Labored 06/11/19 08:15 Respiratory Depth Normal 06/11/19 08:15 Respiratory Pattern Normal 06/11/19 08:15 Blood Pressure 148/74 H 06/11/19 11:35 Pulse Oximetry 98 06/11/19 11:35 Respiratory End-tidal CO2 37 06/10/19 14:07 Oxygen Delivery Method Room Air 06/11/19 11:35 Oxygen Flow Rate 0 06/11/19 11:35 Pain Level 0 06/11/19 09:00 Intake & Output 06/10/19 06/11/19 06/11/19 23:59 11:59 23:59 Intake Total 1460.667 / 4580.792 5043.667 / 2034.667 Output Total 1200 / 1200 1650 / 1950 300 / 1950 Balance 260.667 / 370.667 384.667 / 84.667 -300 / 84.667 Weight 78.6 kg Intake: IV 1130.667 / 8190.397 0640.667 / 1674.667 Oral 330 / 330 360 / 360 Output: Urine 1050 / 1050 1650 / 1950 300 / 1950 Estimated Blood Loss 150 / 150 Other: Urine Color Yellow Yellow Pale Yellow Straw Urine Appearance Clear Clear Clear Urine Odor None Normal Comment hat wasn't in toilet - pt voided a moderate amount. hat is now in toilet Emesis Description None Voiding Methods Indwelling Catheter Toilet [facility] Medical History Actinic keratoses (Chronic 02/29/16) Arthritis of carpometacarpal (CMC) joint of right thumb (Chronic 04/13/18) Chest pain (Resolved 09/16/14) Colon polyp (Acute 05/31/19) Depressive disorder (Chronic) Essential hypertension (Chronic 10/25/13) Excessive cerumen in left ear canal (Chronic 02/29/16) Gastroesophageal reflux disease (Chronic) Hyperlipidemia (Chronic 02/11/13) Hypothyroidism (Chronic 02/11/13) Knee pain, bilateral (Chronic 09/01/15) Midline low back pain without sciatica (Chronic 08/06/11) Peripheral neuralgia (Chronic) Right carpal tunnel syndrome (Resolved 06/20/17) Right wrist pain (Chronic 05/06/17) Surgical History Biopsy of breast Colonoscopy - MAC (Resolved ~05/31/19) History of carpal tunnel surgery of right wrist (Acute) Status post tubal ligation (Acute) Family History Mother Essential hypertension Heart disease Hyperlipidemia Myocardial infarction Father Heart disease Brother No problems noted. Maternal Grandfather Heart disease Paternal Grandfather Diabetes Maternal Grandmother Heart disease Stroke Paternal Grandmother No problems noted. Daughter Diabetes Sister No problems noted. Sister No problems noted. Sister Essential hypertension Breast cancer Brother No problems noted. Brother No problems noted. Brother No problems noted. Brother No problems noted. Daughter No problems noted. Social History Smoking/Tobacco Use Status: Former Tobacco Use Quit Date: 10/27/85 Alcohol Intake: current Alcohol Intake frequency: holidays/special occasions only Alcohol type: wine Drug use: Never Substance use type: does not use Caregiver/Support person: No Household members: none Housing: apartment Do you need help understanding health information?: Rarely Pets and animals: No Sexually active: No Do you think of yourself as: straight/heterosexual Current gender identity: decline to answer What is your relationship status?: How often do you talk on the phone with friends or family?: decline to answer How often do you get together with friends or relatives?: decline to answer How often do you attend cheondoism or christian services?: 4 or more times per year Do you belong to any clubs or organized social groups?: no Panel score (0-1 are the most socially isolated patients): 1 What type of physical activity do you participate in: walking Duration: 15-30 minutes/day Frequency: 3-4 times per week Tamara/Samaritan: Mormonism Special tamara needs: No Seatbelt use: always Drive intox or ride w/intox pick up driver: No Do you feel safe at home: Yes Do you feel safe in your relationship?: No
--- NOTE | 2019-06-11 14:13 | PDOC.CMDIS ---
- If Service Date Differs Date of service: 06/11/19 Time of Service: 14:13 LACE Index Scoring Tool - Questions: Length of Stay (in days): 1 Acuity (Admit via E.D.?): No E.D. Visits: 0 - Answers: Total Score: 1 Risk of Readmission: Low Risk Care Management Discharge Reason for Hospitalization: right TKR Discharge Plan: Abena will be discharged home with no additional services and begin OP PT in 2 weeks. She will be transported by her daughter via private vehicle' Abena will follow up with Dr. George and her discharge plan of care. Patient/Family Education Needs: Discharge plan, limitations, follow up plan, Ask Me Three
--- NOTE | 2019-06-11 14:59 | PT.INTREAT ---
Date of service: 06/11/19 Time of Service: 14:59 PT Notes Inpatient Physical Therapy Treatment Note [facility] Date: 06/11/19 PRECAUTIONS: Fall, WBAT R SUBJECTIVE: Abena is agreeable to participating in PT. She reports that she is feeling much better this morning. OBJECTIVE: PAIN: No c/o pain BED MOBILITY/TRANSFERS Supine-sit: I with HOB flat Sit-supine: I with HOB flat Sit-stand: SBA in a.m.; S in p.m. Stand-sit: SBA in a.m.; S in p.m. GAIT Assistive Device: FWW Weight bearing: WBAT R Assist: CGA in a.m.; SBA in p.m. Distance: 50' +100' in a.m.; 150' in p.m. Deviation: Seated rest, step through instruction, knee buckling throughout session in a.m. THEREX: Patient completed a lower extremity strengthening and stabilization program, in a supine position in a.m. and a seated position in p.m., as per flow sheet. Patient ends with cryocuff to R knee in both a.m. and p.m. STAIRS: Up/down 2?6 using one rail/SPC and a step to pattern with CGA ASSESSMENT: Patient tolerated session well, with minimal complaint. Patient demonstrates significant knee buckling throughout gait training in a.m., but does not demonstrate knee buckling with gait training in p.m. Patient was able to tolerate a progression in gait distance with FWW support and SBA. PLAN: As per primary PT TREATMENT CODE/TIME: Session 1: 30 minutes; [id number], [id number] Session 2: 25 minutes; [id number], [id number]
--- NOTE | 2019-06-11 15:34 | CHAPLAIN ---
Abena told me she is expecting to be discharged later today, and she was. She told me about moving for [place] for the winter, and hoping to leave a big house she's in now in [facility] to move in with a daughter on [address]. Abena is a member of [employer] and I let her know that the nematologist usually visits on Friday so she may see him.
--- NOTE | 2019-06-11 18:00 | INDS_ITS ---
Date of service: 06/11/19 Time of Service: 18:00 PT Notes Inpatient Physical Therapy Discharge Summary Dates: 06/11/2018 Dates of Service: 06/10/2019 and 06/11/2019 This is a clinical summary of care provided on the duration of dates listed above. No charge was made in the completion of this documentation. Referring Doctor: francisco George MD PT Orders: PT CONSULT: S/P R TKA Precautions: Fall. Standard. WBAT on R Patient Profile/Admitting Diagnosis: Patient is a 73-year-old female with degenerative joint disease of her right knee and is S/P R total knee arthroplasty on postoperative day 0. PMHX: Depression HTN GERD Hyperlipidemia Hypothyroidism LBP Peripheral Neuralgia R wrist pain Social History/Home Situation: Patient lives alone in a 1-floor house with 2 steps to enter and a rail on the right going up. She is independent with all aspects of ADLs without the need for an assistive ambulatory device nor adaptive equipment. The house has been handicap accessible as patient used to take care of her ailing parents in the same house. Patient will have daughter Candy who will be with her for the next three weeks to assist with her recovery. Current Functional Limitations: Need for an assistive device and physical assistance for all transfer and ambulation task performance; decline in mobility level Equipment Owned/DME: FWW, ZOILA, SC, high-rise toilete seat, shower chair, bedside commode Subjective: NT Objective: General Observation: NT Mental Status: NT Pain: NT Vital Signs: NT ROM: Right Upper Extremity: Shoulder Flexion WFL. Shoulder abduction WFL. Elbow flexion WFL. Wrist flexion WFL. Functional opening and closing of hand WFL. Left Upper Extremity: Shoulder Flexion WFL. Shoulder abduction WFL. Elbow flexion WFL. Wrist flexion WFL. Functional opening and closing of hand WFL. Right Lower Extremity: Hip flexion 0-30 in supine limited by nerve block aftereffect. Hip abduction 0-20 in supine limited by nerve block aftereffect . Knee flexion 0-40 in supine limited by nerve block aftereffect, patient was able to assume up to 90 degrees of knee flexion while seated at edge of blood bed. Active knee extension unable to perform. Ankle dorsiflexion WFL. Ankle plantarflexion WFL. Left Lower Extremity: Hip flexion WFL. Hip abduction WFL. Knee flexion WFL. Ankle dorsiflexion WFL. Ankle plantarflexion WFL. Strength: Right Upper Extremity: Shoulder flexors 5/5. Shoulder abductors 5/5. Elbow flexors 5/5. Elbow extensors 5/5. Inside Plant Supervisor strong. Left Upper Extremity: Shoulder flexors 5/5. Shoulder abductors 5/5. Elbow flexors 5/5. Elbow extensors 5/5. Inside Plant Supervisor strong. Right Lower Extremity: Hip flexors 3-/5. Hip abductors 3-/5. Knee flexors 3-/5. Knee extensors 3/5. Ankle dorsiflexors 4-/5. Ankle plantarflexors 4-/5. Left Lower Extremity:Hip flexors 5/5. Hip abductors 5/5. Knee flexors 5/5. Knee extensors 5/5. Ankle dorsiflexors 5/5. Ankle plantarflexors 5/5. Sensation:NT Bed Mobility/Transfers: Rolling I Supine to sit I Sit to supine I Sit to stand SBA Stand to sit SBA Bed to chair SBA Chair to bed SBA Gait: 50' + 100' with one seated rest with CGA, step through pattern. Up and down 2 x 6-inch steps while holding onto 1 rail using SPC. Balance: Static Sitting: Good Dynamic Sitting: Good Static Standing: Fair Dynamic Standing: Fair Assessment: Patient presents with clinical signs and symptoms consistent with current/admitting diagnoses that have resulted to mobility limitations, gait instability, generalized weakness, and impairment of motor control as demonstrated by the following impairment level findings: 1. Decreased strength to R LE major muscle groups leading to R knee buckling 2. Impaired sitting/standing balance 3. Impaired activity tolerance 4. Limitation of joint range of motion in R hip and knee joints Impairments are contributing to the following functional limitations: 1. Increased dependence with transfers 2. Inability to safely ambulate without assistive device and physical assistance 3. Increase completion time for mobility ADL performance 4. Increased fall risk 5. Inability to negotiate steps safely without an assistive device Goals: Goals X1 week 1. Supine-Sit independent MET 2. Sit-Supine independent MET 3. Sit-Stand independent NOT MET 4. Stand-Sit independent NOT MET 5. Bed-Chair independent NOT MET 6. Chair-Bed independent NOT MET 7. Independent gait on level surface with use of least restrictive device for at least 300 feet without report of pain nor dyspnea NOT MET 8. Independent stair negotiation while holding onto bilateral rails for at least 5 steps without report of pain nor dyspnea NOT MET 9. Independent with home exercise program NOT MET 10. Good static and dynamic standing balance/tolerance NOT MET DISCHARGE RECOMMENDATIONS: May benefit from skilled physical therapy services according to orthopedic surgeon's timeline recommendations. Patient will be educated and trained on home exercise program per TKA exercise protocol in preparation for outpatient physical therapy services. TREATMENT CODE/TIME: MS Thank you very much for this referral. Betsy Multani PT, DPT, CLT [facility]
== END 2019-06-11 14:25 | disposition home or self-care (01) | DRG 470 ==
LOC: PDS 09:19 → MS 13:08
PROVIDERS: Admitting Provider Student in an Organized Health Care Education/Training Program; Visit Provider Student in an Organized Health Care Education/Training Program
PROC: 0SRC0J9 Replacement of Right Knee Joint with Synthetic Substitute, Cemented, Open Approach (ICD-10-PCS; CPT 27447; principal; 2019-06-10 12:30)
DX: M17.11 Unilateral primary osteoarthritis, right knee (principal); M25.561 Pain in right knee; Z96.651 Presence of right artificial knee joint; I10 Essential (primary) hypertension; F32.9 Major depressive disorder, single episode, unspecified; K21.9 Gastro-esophageal reflux disease without esophagitis; E03.9 Hypothyroidism, unspecified
CPT/HCPCS: 27447; 76942; 97110; 97162; 97530; NC; J0690; J1885; J2250; J3010

== ENCOUNTER 2019-06-23 11:30 | Outpatient (CLI) | payer MEDICARE, SELFPAY ==
--- NOTE | 2019-06-23 10:16 | DI.RAD_ITS ---
SYMPTOM/DIAGNOSIS: S/P RT TKA RIGHT KNEE: Two views. Comparison is made with 05/05/19. The patient is now status post right total knee replacement. The orthopedic hardware appears in good position. The bones are intact. Vascular calcifications are seen in the soft tissues. There is mild generalized soft tissue swelling about the knee. IMPRESSION: Right TKR. LEG LENGTH EXAMINATION: Routine examination was performed. There are post surgical changes of a right total knee replacement. The orthopedic hardware appears in good position. The left knee is well maintained. The right lower extremity measures 91.7 cm. The left lower extremity measures 92.3 cm.
== END 2019-06-23 11:50 ==
PROVIDERS: Visit Provider Student in an Organized Health Care Education/Training Program
DX: M17.11 Unilateral primary osteoarthritis, right knee (principal); Z96.651 Presence of right artificial knee joint; M79.89 Other specified soft tissue disorders; M21.70 Unequal limb length (acquired), unspecified site; Z47.1 Aftercare following joint replacement surgery
CPT/HCPCS: 73560; 77073

== ENCOUNTER → 2019-07-19 10:27 | Outpatient (BNVA) | payer MEDICARE, SELFPAY | PROVIDERS: Visit Provider Student in an Organized Health Care Education/Training Program | DX: M17.11 Unilateral primary osteoarthritis, right knee (principal); Z47.1 Aftercare following joint replacement surgery; Z96.651 Presence of right artificial knee joint ==

== ENCOUNTER 2020-04-11 01:54 | Outpatient (CLI) | payer MEDICARE, SELFPAY ==
[2020-04-11 22:12] LABS: ALT 28 U/L (14-59); AST 23 U/L (15-37); Albumin 4.5 g/dL (3.4-5.0); Alkaline Phosphatase 74 U/L (46-116); BUN 14 mg/dL (7-18); Bilirubin, Total 0.6 mg/dL (0.2-1.0); CREATININE 0.94 mg/dL (0.55-1.02); Calcium 9.3 mg/dL (8.5-10.1); Calculated LDL 134 mg/dL (<100); Chloride 104 mmol/L (98-107); Cholesterol 222 mg/dL (<200); Estimated GFR 58.05 (mL/min/1.73m2); Glucose 87 mg/dL (74-106); HDL Cholesterol 55 mg/dL (40-60); Potassium 4.2 mmol/L (3.5-5.1); Sodium 142 mmol/L (136-145); TSH (W/Ref FT4) 1.46 uIU/mL (0.36-3.74); Total Protein 7.7 g/dL (6.4-8.2); Triglyceride 169 mg/dL (<150)
== END 2020-04-11 02:14 ==
DX: E03.9 Hypothyroidism, unspecified (principal); E78.5 Hyperlipidemia, unspecified; I10 Essential (primary) hypertension; K21.9 Gastro-esophageal reflux disease without esophagitis
CPT/HCPCS: 80053; 80061; 84443

== ENCOUNTER 2021-05-10 02:09 | Outpatient (CLI) | payer MEDICARE, SELFPAY ==
--- NOTE | 2021-05-10 06:45 | DI.MAMMO_ITS ---
Exam(s) MAMMO SCREENING EXAM: MAMMO SCREENING CLINICAL HISTORY: screening,Z12.39. TECHNIQUE: Bilateral full field digital CC and MLO mammographic images were obtained with 3D tomosyn thesis and utilizing computer aided detection (CAD). COMPARISON: Prior mammograms dating back to 2011, the most recent being March 2019. . Family history. Her sister was diagnosed with breast cancer FINDINGS: There are no CAD designations There are no new spiculated masses nor malignant appearing microcalcification groups. There is no significant architectural distortion nor skin thickening-retraction. IMPRESSION: No radiographic evidence of malignancy. BI-RADS Category 1 - Negative Breast Density - Category A - Almost entirely fatty Breast density Category C or D implies that the patient has dense breast tissue. Dense breast tissue can make it harder to find cancer on a mammogram. Dense breast tissue is also associated with an incr eased risk of breast cancer. This information about the result of the mammogram report was provided to the patient to raise their awareness. Use this report when you speak with the patient about their risks for breast cancer, which includes their family history. At that time, you may recommend additional screening tests (Ultrasoun d or MRI) as these tests may add significant information. A negative radiographic report should not delay biopsy if a dominant or clinically suspicious mass is present. Up to ten percent of cancers are not identified on mammography. A negative report may reinforce clinical impression. Adenosis and dense breasts may obscure an underlying neoplasm. False positive reports average 6 to 10%. Patient will receive a letter notifying them of these results.
== END 2021-05-10 02:29 ==
DX: Z12.31 Encounter for screening mammogram for malignant neoplasm of breast (principal)
CPT/HCPCS: 77063; 77067

== ENCOUNTER 2021-05-10 03:35 | Outpatient (CLI) | payer MEDICARE, SELFPAY ==
[2021-05-10 10:09] LABS: ALT 26 U/L (14-59); AST 26 U/L (15-37); Albumin 4.2 g/dL (3.4-5.0); Alkaline Phosphatase 66 U/L (46-116); Anion Gap 7.5 mmol/L (3-11); BUN 23 mg/dL (7-18); Bilirubin, Total 0.9 mg/dL (0.2-1.0); CO2 29.5 mmol/L (21.0-32.0); CREATININE 1.1 mg/dL (0.55-1.02); Calcium 9.7 mg/dL (8.5-10.1); Chloride 102 mmol/L (98-107); Estimated GFR 48.29 (mL/min/1.73m2); Glucose 98 mg/dL (74-106); Potassium 4.2 mmol/L (3.5-5.1); Sodium 139 mmol/L (136-145); TSH (W/Ref FT4) 2.18 uIU/mL (0.36-3.74); Total Protein 7.7 g/dL (6.4-8.2)
[2021-05-11 21:23] LABS: Calculated LDL 137 mg/dL (<100); Cholesterol 220 mg/dL (<200); HDL Cholesterol 51 mg/dL (40-60); Triglyceride 160 mg/dL (<150)
== END 2021-05-10 03:36 | disposition home or self-care (01) ==
LOC: LBO 03:36
DX: E03.9 Hypothyroidism, unspecified (principal); E78.5 Hyperlipidemia, unspecified; I10 Essential (primary) hypertension
CPT/HCPCS: 36415; 80053; 80061; 84443

== ENCOUNTER → 2023-05-12 10:26 | Outpatient (BNVA) | payer MEDICARE, SELFPAY | PROVIDERS: PCP Nurse Practitioner Family; Referring Provider Nurse Practitioner Family; Visit Provider Surgery | DX: K64.8 Other hemorrhoids (principal); K64.4 Residual hemorrhoidal skin tags; R15.9 Full incontinence of feces; R32 Unspecified urinary incontinence | CPT/HCPCS: 99203; 99243 ==

== ENCOUNTER 2023-05-23 10:44 | Outpatient (CLI) | payer MEDICARE, SELFPAY ==
--- NOTE | 2023-05-23 10:30 | RT.EKG_ITS ---
APPROVED REPORT Exam: Resting ECG Reason for Exam: family history of heart attack Patient Location: O HR:55 bpm ECG Measurements Heart Rate 55 AXIS WV 187 P 81 QRSd 81 QRS 73 QT 417 T 70 QTc 399 Conclusion Sinus rhythm...normal P axis, V-rate 50- 99 Left atrial enlargement...P, P'>60mS, <-0.15mV V1 Otherwise normal ECG
== END 2023-05-23 10:45 | disposition home or self-care (01) ==
LOC: DI.CM 10:45
PROVIDERS: PCP Nurse Practitioner Family; Visit Provider Nurse Practitioner Family
DX: Z82.49 Family history of ischemic heart disease and other diseases of the circulatory system (principal)
CPT/HCPCS: 93010

== ENCOUNTER 2024-05-03 03:30 | Outpatient (CLI) | payer MEDICARE, SELFPAY ==
[2024-05-03 13:25] LABS: ALT 27 U/L (14-59); AST 21 U/L (15-37); Albumin 4.1 g/dL (3.4-5.0); Alkaline Phosphatase 64 U/L (46-116); Anion Gap 6.1 mmol/L (3-11); BUN 20 mg/dL (7-18); Bilirubin, Total 0.55 mg/dL (0.2-1.0); CO2 28.9 mmol/L (21.0-32.0); CREATININE 1.2 mg/dL (0.55-1.02); Calcium 9.6 mg/dL (8.5-10.1); Calculated LDL 106 mg/dL (<100); Chloride 106 mmol/L (98-107); Cholesterol 201 mg/dL (<200); Estimated GFR 46.05 (mL/min/1.73m2); Glucose 96 mg/dL (74-106); HDL Cholesterol 64 mg/dL (40-60); Potassium 4.3 mmol/L (3.5-5.1); Sodium 141 mmol/L (136-145); TSH (W/Ref FT4) 3.06 uIU/mL (0.36-3.74); Total Protein 7.9 g/dL (6.4-8.2); Triglyceride 156 mg/dL (<150)
== END 2024-05-03 03:31 | disposition home or self-care (01) ==
LOC: LOS 03:31
PROVIDERS: PCP Nurse Practitioner Family; Visit Provider Nurse Practitioner Family
DX: E03.9 Hypothyroidism, unspecified (principal); E78.2 Mixed hyperlipidemia
CPT/HCPCS: 36415; 80053; 80061; 84443

== ENCOUNTER → 2024-05-05 00:18 | Outpatient (CLI) | payer MEDICARE, SELFPAY ==
--- NOTE | 2024-05-05 07:15 | DI.RAD_ITS ---
Exam(s) XR HIP LT COMPLETE AP PELVIS EXAM: XR HIP LT COMPLETE AP PELVIS CLINICAL HISTORY: persistent pain,LT HIP, M25.552. TECHNIQUE: 2D digital imaging was performed. Two views. COMPARISON: No exams were available for comparison FINDINGS: BONES: No acute fracture is present. No bony destructive lesion is seen. JOINTS: No dislocation present. Hip joint spaces are maintained. No significant degenerative dawson es. Mild spurring at the SI joints. SOFT TISSUE: Normal. IMPRESSION: No significant degenerative changes of the hips. Mild degenerative changes of the sacroiliac joints. DATA REPOSITORY: RADIATION DOSE DELIVERED:
--- NOTE | 2024-05-05 07:15 | DI.RAD_ITS ---
Exam(s) XR LUMBAR SPINE COMPLETE EXAM: XR LUMBAR SPINE COMPLETE CLINICAL HISTORY: persistent pain MID LOW BACK,M54.5. TECHNIQUE: 2D digital imaging was performed. Five views. COMPARISON: CR LUMBAR SPINE COMPLETE from 11/01/2009 FINDINGS: BONES: No fracture or destructive lesion. Vertebral body heights are maintained. Minimal endplate os teophytes. Mild facet degenerative changes at the lower lumbar levels. No spondylolysis. DISKS: Intervertebral disc spaces are maintained. ALIGNMENT: Lumbar spinal alignment is within normal limits. SOFT TISSUE: The aorta is heavily calcified. IMPRESSION: Degenerative changes mainly of the facet joints at the lower lumbar spine. No significant disc space narrowing. DATA REPOSITORY: RADIATION DOSE DELIVERED:
== END ==
PROVIDERS: PCP Nurse Practitioner Family; Visit Provider Nurse Practitioner Family
DX: M25.552 Pain in left hip (principal); Z78.0 Asymptomatic menopausal state; M54.50 Low back pain, unspecified
CPT/HCPCS: 72110; 73502

== ENCOUNTER 2025-03-15 10:21 | Outpatient (CLI) | payer MEDICARE, SELFPAY ==
[2025-03-15 12:27] LABS: Abs Immature Grans 0.02 10^3/uL (0.0-0.06); Absolute Basophil Count 0.06 10^3/uL (0.0-0.2); Absolute Eosinophil Count 0.18 10^3/uL (0.0-0.7); Absolute Lymphocyte Count 1.87 10^3/uL (1.2-3.4); Absolute Monocyte Count 0.59 10^3/uL (0.1-0.8); Absolute Neutrophil Count 4.81 10^3/uL (1.2-6.7); Basophils % 0.8 %; Eosinophils % 2.4 %; HCT 38.8 % (36.0-46.0); HGB 13.3 g/dL (11.2-15.7); Immature Grans % 0.3 %; Lymphocytes % 24.8 %; MCH 30.9 pg (27.0-33.0); MCHC 34.3 % (32.0-36.0); MCV 90 fL (80-95); MPV 9.9 fL (8.0-11.0); Monocytes % 7.8 %; Neutrophils % 63.9 %; Platelet Count 268 10^3/uL (130-400); RDW 11.9 % (11.7-14.6); RDW-SD 39.1 fL; WBC 7.53 10^3/uL (4.4-10.8)
[2025-03-15 12:47] LABS: ALT 24 U/L (14-59); AST 31 U/L (15-37); Albumin 4.5 g/dL (3.4-5.0); Alkaline Phosphatase 75 U/L (46-116); Anion Gap 8.5 mmol/L (3-11); BUN 21 mg/dL (7-18); Bilirubin, Total 0.7 mg/dL (0.2-1.0); CO2 30.5 mmol/L (21.0-32.0); CREATININE 1.1 mg/dL (0.55-1.02); Calculated LDL 142 mg/dL (<100); Chloride 100 mmol/L (98-107); Cholesterol 227 mg/dL (<200); Glucose 96 mg/dL (74-106); HDL Cholesterol 56 mg/dL (>or=50); Potassium 3.4 mmol/L (3.5-5.1); Sodium 139 mmol/L (136-145); TSH (W/Ref FT4) 2.07 uIU/mL (0.36-3.74); Total Protein 7.8 g/dL (6.4-8.2); Triglyceride 146 mg/dL (<150)
[2025-03-16 09:39] LABS: IgA 258 mg/dL (85-499); Interpretation (See Note); Tissue Transglutaminase IgA <4.0 CU (<20.0)
== END 2025-03-15 10:22 | disposition home or self-care (01) ==
PROVIDERS: PCP Nurse Practitioner Family; Visit Provider Nurse Practitioner Family
DX: R19.8 Other specified symptoms and signs involving the digestive system and abdomen (principal); R10.30 Lower abdominal pain, unspecified; E78.2 Mixed hyperlipidemia; E03.9 Hypothyroidism, unspecified
CPT/HCPCS: 36415; 80053; 80061; 82784; 83516; 81003; 84443; 85025

== ENCOUNTER → 2025-04-20 14:36 | Outpatient (BNVA) | payer MEDICARE, SELFPAY | PROVIDERS: PCP Nurse Practitioner Family; Referring Provider Nurse Practitioner Family; Visit Provider Podiatrist | DX: B07.0 Plantar wart (principal); M79.671 Pain in right foot; M79.672 Pain in left foot | CPT/HCPCS: 17110 ==

== ENCOUNTER 2025-05-24 16:34 | Outpatient (REF) | payer MEDICARE, SELFPAY ==
[2025-05-24 21:39] LABS: Glucose Negative (Negative)
[2025-05-24 21:57] LABS: C & S Indicated? No; RBC 0-2 HPF (0-2); WBC 0-2 HPF (0-5)
== END 2025-05-24 16:35 | disposition home or self-care (01) ==
LOC: LBN 16:34
PROVIDERS: PCP Nurse Practitioner Family; Visit Provider Nurse Practitioner Family
DX: R10.9 Unspecified abdominal pain (principal)
CPT/HCPCS: 81003; 81015

== ENCOUNTER → 2025-05-25 10:39 | Outpatient (BNVA) | payer MEDICARE, SELFPAY | PROVIDERS: PCP Nurse Practitioner Family; Referring Provider Nurse Practitioner Family; Visit Provider Surgery | DX: K64.8 Other hemorrhoids (principal); K59.00 Constipation, unspecified; K62.5 Hemorrhage of anus and rectum | CPT/HCPCS: 99214 ==

== ENCOUNTER 2025-06-02 06:12 | Day surgery (SDC) | payer MEDICARE, SELFPAY ==
[2025-06-02 06:28] VITALS: BP 188/68; PULSE 79; RESP 16; TEMP 36.7; O2SAT 98
[2025-06-02] MEDS: Lactated Ringers 1,000 ML 80 ML IV (06:55)
--- NOTE | 2025-06-02 07:08 | ANES.PREOP_ITS ---
General Info Date of Service Date Performed: 06/02/25 Height: 5 ft 3 in Weight: 74.9 kg Body Mass Index (BMI): 29.2 Surgical Procedure: Operation Date: 06/02/25 07:35 Proposed Procedure Side Surgeon p Colonoscopy Sherrill Torres MD Actual Procedure Side Surgeon p Colonoscopy Not Applicable Sherrill Torres MD Meds Allergies and Home Medications Allergies Allergy/AdvReac Type Severity Reaction Status Date / Time No Known Allergies Allergy Verified 06/02/25 06:43 Home Medication ?Medication ?Instructions ?Recorded hydrochlorothiazide 25 mg tablet 25 mg PO QAM #90 tab- caps 12/07/24 levothyroxine 50 mcg tablet 50 mcg PO DAILY #90 tab-ca ps 12/07/24 pravastatin 40 mg tablet 40 mg PO HS #90 tab-caps 09/20 hydrocortisone 2.5 % topical cream 1 applic NV BID-QID PRN pain #30 05/24/25 with perineal applicator grams (Anusol-HC) lisinopril 20 mg tablet 20 mg PO DAILY #90 tabs 04/27 07/21 pantoprazole 40 mg tablet,delayed 40 mg PO DAILY #90 t abs 05/24/25 release trazodone 50 mg tablet 50 mg PO QHS PRN sleep #60 t abs 05/24/25 hydrocortisone 2.5 % topical cream 1 applic NV Q8H PRN hemorrhoids 1 05/25/25 with perineal applicator week #30 grams (Anusol-HC) Current Visit Medications: Current Medications Generic Name Dose Route Start Last Admin Trade Name Freq PRN Reason Stop Dose Admin Ringer's Solution 1,000 mls @ 80 mls/hr 06/02/25 06:00 06/02/25 06:55 IV 07/01/25 23:59 80 mls/hr INFUSION MORAIMA Administration IV Miscellaneous Supplies 1 each 06/02/25 06:00 Iv Access IV 07/01/25 23:59 DIRECTED MORAIMA Sodium Biphosphate/Sodium Phosphate 133 - 266 ml 06/02/25 06:00 Na Phosphate Enema-Adult 133 Ml Btl NV 06/02/25 23:59 DIRECTED MORAIMA Sodium Chloride 0 ml 06/02/25 06:00 Normal Saline Flush 10 Ml Syr IV 07/01/25 23:59 PRN PRN Sodium Chloride 0 ml 06/02/25 06:00 Normal Saline 10 Ml Vial IJ 07/01/25 23:59 DIRECTED PRN Sterile Water 0 ml 06/02/25 06:00 Water,Injection,Sterile 10 Ml Vial IJ 07/01/25 23:59 DIRECTED PRN PFSH Active Problems Active Problems: Problem Status Onset Code Internal and external prolapsed hemorrhoids Acute K64.8 Pain in both feet Acute M79.671, M79.672 Plantar verruca Acute B07.0 Lower abdominal pain Acute R10.30 Change in bowel function Acute R19.8 Left hip pain Acute M25.552 Corns and callosities Acute L84 Urinary incontinence Acute R32 Pelvic floor dysfunction in female Acute M62.89 External hemorrhoids with complication Acute K64.4 Right wrist pain Chronic 05/06/17 M25.531 Peripheral neuralgia Chronic M79.2 Midline low back pain without sciatica Chronic 08/06/11 M54.5 Knee pain, bilateral Chronic 09/01/15 M25.561, M25.562 Hypothyroidism Chronic 02/11/13 E03.9 Hyperlipidemia Chronic 02/11/13 E78.5 Gastroesophageal reflux disease Chronic K21.9 Excessive cerumen in left ear canal Chronic 02/29/16 H61.22 Essential hypertension Chronic 10/25/13 I10 Depressive disorder Chronic F32.9 Colon polyp Acute 05/31/19 K63.5 Chest pain Resolved 09/16/14 R07.9 Arthritis of carpometacarpal (CMC) joint of right thumb Chronic 04/13/18 M18.11 Actinic keratoses Chronic 02/29/16 L57.0 Knee effusion, right Acute M25.461 Plantar wart of left foot Acute B07.0 Status post total right knee replacement Acute ~06/10/19 Z96.651 Abdominal gas pain Acute R14.1 Hemorrhoids Acute K64.9 Constipation Acute K59.00 Callus of foot Acute L84 Hyperlipidemia LDL goal <100 Acute E78.5 Anal itching Acute L29.0 Medical History Medical History Fecal soiling due to fecal incontinence Right carpal tunnel syndrome (06/20/17) Surgical History Surgical History Status post tubal ligation History of carpal tunnel surgery of right wrist Colonoscopy - MAC (~05/31/19) 05/23/14 Biopsy of breast BENIGN Tobacco Smoking/Tobacco Use Status: Former Tobacco Use Passive smoking exposure: Yes Second hand exposure: Yes Alcohol Alcohol Intake: current Alcohol intake frequency: a few times a month Alcohol type: wine Substance Use Substance use: Never Substance use type: does not use Counseling provided: none Vital Signs and Lab Results Vital Signs Most Recent Vital Signs in EMR: Most Recent Vital Signs Temp Pulse Resp BP Pulse Ox 36.7 C 79 16 188/68 H 98 06/02/25 06:28 06/02/25 06:28 06/02/25 06:28 06/02/25 06:28 06/02/25 06:28 Anesthesia Assessment and Plan Anesthesia History Personal History: PONV and Delayed Emergence Family History: No Family History of Anesthesia Complications Exercise Tolerance Exercise Tolerance: Metabolic Equivalents>4 Pertinent Negatives Pertinent Negatives: No Symptoms of GERD (treatment with Rx) Cardiac & Pulmonary Exam Cardiac Exam: Normal S1/S2 Heart Sounds Pulmonary Exam: Clear Bilateral Breath Sounds Implantable Cardiac Device Does patient have a Pacemaker or an ICD?: No Airway Exam Known Difficult Airway: No Mallampati Class: 2 Mouth Opening: Normal (> 3cm) Thyromental Distance: Greater than 3 cm Neck Range of Motion: Full ROM Neck Circumference: Normal Teeth Condition: Normal Dentition ASA Classification ASA Score: ASA 2 Emergency Case?: No NPO Status NPO Status: NPO Clears >2 hours, Solids >8 hours Anesthesia Plan Resuscitation Status: Full Code Anesthesia Technique: General Anesthesia Airway Planned: Natural Airway Monitors Used: Standard Monitors
[2025-06-02 07:10] VITALS: BMI 29.2
--- NOTE | 2025-06-02 07:31 | W.PM.DSUDISC ---
Date of service: 06/02/25 Discharge Plan Disposition Patient Disposition: Home Condition: Stable Discharge Details Attending Provider: Sherrill Torres Primary Care Provider: Tavon Flower Home Meds and New Rx's Prescriptions: Continued hydrocortisone [Anusol-HC] 2.5 % cream with perineal applicator 1 applic ME Q8H PRN (Reason: hemorrhoids) 7 Days Qty: 30 3RF lisinopril 20 mg tablet 20 mg PO DAILY Qty: 90 4RF pantoprazole 40 mg tablet,delayed release (DR/EC) 40 mg PO DAILY Qty: 90 4RF trazodone 50 mg tablet 50 mg PO QHS PRN (Reason: sleep) Qty: 60 0RF hydrocortisone [Anusol-HC] 2.5 % cream with perineal applicator 1 applic ME BID-QID PRN (Reason: pain) Qty: 30 0RF pravastatin 40 mg tablet 40 mg PO HS Qty: 90 4RF Rx Instructions: 1 TAB DAILY hydrochlorothiazide 25 mg tablet 25 mg PO QAM Qty: 90 4RF Patient Comments: patient states she can't remember if she took this AM Rx Instructions: 1 TAB QAM levothyroxine 50 mcg tablet 50 mcg PO DAILY Qty: 90 3RF Rx Instructions: 1 TAB DAILY Discharge Instructions Instructions: Hemorrhoids, Diverticulosis (DC), High-fiber diet Additional Instructions: Colon is healthy, no polyps. You have internal hemorrhoids as the cause for your intermittant rectal bleedin. I also saw diverticulosis of the colon (not diverticulitis). High fiber diet or fiber supplementation daily like we discussed in office will help. The bleeding from hemorrhoids will improve with improvements in stool texture. I dont recommend surgery for your hemorroids unless they do not stop bleeding with stool texture change and improvement in constipation. Congratulations you will not require another routine colonoscopy. Stand Alone Forms: Anesthesia Discharge Inst., Colonoscopy Post Instructions, Antonette Elizabeth (DSU) Activity:: Activity as Tolerated Diet:: As Tolerated Discharge Orders Discharge Orders: Discharge Order (Routine); Ordered 06/02/25 Ordered By: Sherrill Torres DS: Diagnosis Discharge Diagnosis (1) Rectal bleeding: Status: Acute (2) History of adenomatous polyp of colon: Status: Acute (3) Diverticulosis large intestine w/o perforation or abscess w/bleeding: Status: Acute
[2025-06-02 08:02] VITALS: BP 160/67; PULSE 84; RESP 16; TEMP 36.2; O2SAT 93
--- NOTE | 2025-06-02 08:03 | W.COLOREPORT ---
Date of service: 06/02/25 Time of Service: 08:03 Colonoscopy Report Date of procedure: 06/02/25 Pre-op diagnosis general: rectal bleeding, history of colon polyps Post-op diagnosis procedure note: same (Rectal bleeding, internal hemorrhoids, diverticulosis of sigmoid without complication) Procedure: Colonoscopy Surgeon: Sherrill Torres Anesthesia Type: MAC Estimated blood loss (mL): 0 Complications: None Disposition: same day Prep: Miralax/Dulcolax (Good prep quality) Procedure Description: Informed consent was obtained and the patient was taken to the procedure area. The patient was placed in left lateral decubitus position on the procedure table. Timeout was performed. Anesthesia was induced. A lubricated colonoscope was inserted through the anus and passed to the cecum. The cecum was identified by the ileocecal valve and the appendiceal orifice. The scope was then slowly withdrawn and the colonic and rectal mucosa examined.The scope was retroflexed in the anorectal junction examined. No mass lesion, poyp, inflammatory change, or AVM seen. Sigmoid diverticulosis noted, small and large mouthed, moderate. No evidence of diverticulitis. Grade 2 internal hemorrhoids without complication. Assessment and plan: Rectal bleeding suspected to be due to internal hemorrhoids and constipation. No polyps or other lesions, no other cause for bleeding. Recommend prescribed anusol and stool texture modification/management of constipation for the bleeding hemorrhoids. Anticipate improvement in intermittent bleeding with stool improvements. High fiber diet and/or daily powdered fiber supplement recommended for diverticulosis. She will not require another routine colonoscopy as she will be 84 the next time she is due.
--- NOTE | 2025-06-02 08:11 | W.ANESPOSTOP ---
Postoperative Evaluation Date, Time and Location Date Performed: 06/02/25 Time Performed: 08:11 Patient Location: Day Surgery Unit Vital Signs Most Recent Imported Vital Signs: Most Recent Vital Signs Temp Pulse Resp BP Pulse Ox 36.2 C L 84 16 160/67 H 93 06/02/25 08:02 06/02/25 08:02 06/02/25 08:02 06/02/25 08:02 06/02/25 08:02 Pain Score Most Recent Pain Score: Most Recent Pain Score Pain Level 0 06/02/25 08:02 Assessment Mental Status: Awake (Alert & Oriented to Patient Baseline) Airway and Respiratory Function: Patent airway with normal (patient baseline) respiratory exam Cardiovascular Function: Hemodynamically Stable Hydration Status: Adequately Hydrated Nausea & Vomiting: No Nausea or Vomiting Pain: Pt. Denies Any Pain Peripheral Nerve Block: Patient did not receive a nerve block
[2025-06-02 08:29] VITALS: BP 202/92; PULSE 70; RESP 16; TEMP 36.2; O2SAT 96
== END 2025-06-02 08:47 | disposition home or self-care (01) ==
PROVIDERS: PCP Nurse Practitioner Family; Visit Provider Surgery
PROC: 0DJD8ZZ Inspection of Lower Intestinal Tract, Via Natural or Artificial Opening Endoscopic (ICD-10-PCS; CPT 45378; principal; 2025-06-02 07:30)
DX: K62.5 Hemorrhage of anus and rectum (principal); Z86.0101 Personal history of adenomatous and serrated colon polyps; K57.31 Diverticulosis of large intestine without perforation or abscess with bleeding; K64.1 Second degree hemorrhoids
CPT/HCPCS: 45378; J2003; J2704